=== PATIENT | female | born 1990 | race Two or more races ===

== ENCOUNTER 2022-11-01 08:23 | Outpatient (CLI) | payer OTHER | END 2022-11-01 08:41 | disposition home or self-care (01) | LOC: TOM 08:23 | PROVIDERS: ATTEND Surgery | DX: R22.2 Localized swelling, mass and lump, trunk (principal); R19.03 Right lower quadrant abdominal swelling, mass and lump ==

== ENCOUNTER 2023-02-12 05:38 | Day surgery (SDC) | payer OTHER ==
[~2023-02-12] VITALS: Ht 167.6 cm; Wt 81.6 kg
[~2023-02-12 05:38] MED LIST: SYNTHROID88 MCG PO
== END 2023-02-12 17:25 | disposition home or self-care (01) ==
LOC: CIR.AMB 05:38
PROVIDERS: ATTEND Surgery
DX: D48.1 Neoplasm of uncertain behavior of connective and other soft tissue (principal); R19.09 Other intra-abdominal and pelvic swelling, mass and lump; N80.C11 Endometriosis of the anterior abdominal wall, fascia and muscular layers; Z91.013 Allergy to seafood; Z20.822 Contact with and (suspected) exposure to COVID-19; E03.9 Hypothyroidism, unspecified